=== PATIENT | male | born 1985 | race Caucasian/White ===

== ENCOUNTER 2021-06-18 11:08 | Emergency (ER) | payer OTHER, SELFPAY ==
[2021-06-18 11:25] VITALS: BP 126/98; PULSE 93; RESP 18; TEMP 36.8; O2SAT 99
--- NOTE | 2021-06-18 11:39 | ED.DENTAL ---
HPI - Dental/Oral General Chief complaint: Dental/Oral Stated complaint: toothache Time Seen by Provider: 06/18/21 11:35 Source: patient Mode of arrival: ambulatory Limitations: no limitations History of Present Illness HPI Narrative: Mr. Pickens is a 35-year-old male patient presenting to the clinic today with complaints of right lower dental pain x2 to 3 days. He reports that when he woke up this morning his jaw was swollen and painful. He had taken some ibuprofen and this has improved. When asked he points back to his right lower back molar as the source of pain. Location: Tooth # (32) Related Data Allergies Allergy/AdvReac Type Severity Reaction Status Date / Time No Known Allergies Allergy Verified 06/18/21 11:37 Review of Systems Review of Systems: Pertinent positives per HPI. Patient denies any fever, chills, rash, headache, visual changes, dizziness, cough, runny nose, sore throat, shortness of breath, chest pain, palpitations, nausea, vomiting, diarrhea, constipation, abdominal pain, or any urinary issues. PMFSH Comments At the time of my signature, I reviewed and agree with the nursing past medical, surgical, social, and family history. There is no relevant family history pertinent to the patient complaint. Exam Narrative: General: Well-developed, well nourished, in no apparent distress Head: Normocephalic, atraumatic Eyes: Pupils equally round and reactive to light bilaterally, EOM intact, sclera and conjunctive clear, no discharge, lids normal Ears: TMs intact and clear, ear canals clear, no drainage, grossly hearing normal. Nose: Nares patent, no discharge, no inflammation, no sinus tenderness. Mouth: Oropharynx without lesions or masses, poor dentition, MMM. Tooth #32 painful to palpation with swelling around the gingiva. No obvious purulent discharge. Neck: Supple, trachea midline, no enlargement of anterior or posterior cervical nodes, no thyroid masses or goiter palpable. Cardio: Regular rate and rhythm, s1 and s2 normal, no murmur appreciated. Resp: Clear to auscultation bilaterally anteriorly and posteriorly, no rhonchi, rales, wheezing or rubs Course Course Emergency Course: Portions of this record may have been created with voice recognition software. Level of Care: Express Care Visit Vital Signs Vital signs: Vital Signs Temperature 36.8 C 06/18/21 11:25 Pulse Rate 93 06/18/21 11:25 Respiratory Rate 18 06/18/21 11:25 Blood Pressure 126/98 H 06/18/21 11:25 Pulse Oximetry 99 06/18/21 11:25 Temperature 36.8 C 06/18/21 11:25 Pulse Rate 93 06/18/21 11:25 Respiratory Rate 18 06/18/21 11:25 Blood Pressure 126/98 H 06/18/21 11:25 Pulse Oximetry 99 06/18/21 11:25 Vital signs reviewed MDM - Dental/Oral MDM Narrative Medical decision making narrative: At the time of evaluation the swelling has gone down in the patient's jaw. I will send him a prescription for amoxicillin for a dental infection. I do not feel that this is currently abscessed however I will give him instructions regarding abscess. He should follow-up with the dentist as soon as possible and follow-up with his PCP regarding his high blood pressure issues to have this rechecked. Differential Diagnosis Differential diagnosis: Likely toothache, fracture of tooth and other (Dental abscess) Discharge Plan Discharge Clinical Impression: Toothache Patient Disposition: Home, Self-Care Condition: Stable Instructions: Antibiotic Form, Dental Abscess (ED) Additional Instructions: Take amoxicillin as prescribed. Tylenol /Motrin as needed for pain or fever May apply ice or heat to affected area to help alleviate symptoms Swish salt water Follow-up with your dentist as soon as possible Discussed patient's elevated blood pressure at the time of visit and recommend follow-up with primary care physician to have this reevaluated within the next week if symptoms persist. Prescriptions: New
[2021-06-18 11:45] VITALS: BP 129/98
== END 2021-06-18 11:45 | disposition home or self-care (01) ==
PROVIDERS: Emergency Provider Nurse Practitioner Family
DX: K08.89 Other specified disorders of teeth and supporting structures (principal)
CPT/HCPCS: 99213; G0463

== ENCOUNTER 2022-01-28 10:40 | Emergency (ER) | payer OTHER, SELFPAY ==
[2022-01-28 11:07] VITALS: BP 133/93; PULSE 79; RESP 18; TEMP 36.9; O2SAT 100
--- NOTE | 2022-01-28 11:25 | ED.EAR ---
HPI - Ear Problem General Chief complaint: Ear Stated complaint: rt ear swollen Time Seen by Provider: 01/28/22 11:15 Source: patient Mode of arrival: ambulatory Limitations: no limitations History of Present Illness HPI Narrative: Mr. Mishra is a 36-year-old male patient presenting to the clinic today with complaints of a bump that is sore to the back of his right earlobe. He reports that this has been ongoing for some time now however the last few days it has gotten worse. He reports he was trying to squeeze it and pop it and felt a ripping sensation Related Data Allergies Allergy/AdvReac Type Severity Reaction Status Date / Time No Known Allergies Allergy Verified 01/28/22 11:27 Review of Systems Review of Systems: Pertinent positives per HPI. Patient denies any fever, chills, rash, headache, visual changes, dizziness, cough, runny nose, sore throat, shortness of breath, chest pain, palpitations, nausea, vomiting, diarrhea, constipation, abdominal pain, or any urinary issues. PMFSH Comments At the time of my signature, I reviewed and agree with the nursing past medical, surgical, social, and family history. There is no relevant family history pertinent to the patient complaint. Exam Narrative: General: Well-developed, well nourished, in no apparent distress Head: Normocephalic, atraumatic Eyes: Pupils equally round and reactive to light bilaterally, EOM intact, sclera and conjunctive clear, no discharge, lids normal Ears: TMs intact and clear, ear canals clear, no drainage, grossly hearing normal. Fluctuant abscess to the right earlobe approximately the size of a grape Nose: Nares patent, no discharge, no inflammation, no sinus tenderness. Mouth: Oropharynx without lesions or masses, good dentition, MMM. Neck: Supple, trachea midline, no enlargement of anterior or posterior cervical nodes, no thyroid masses or goiter palpable. Cardio: Regular rate and rhythm, s1 and s2 normal, no murmur appreciated. Resp: Clear to auscultation bilaterally anteriorly and posteriorly, no rhonchi, rales, wheezing or rubs Course Course Emergency Course: Portions of this record may have been created with voice recognition software. Level of Care: Express Care Visit Vital Signs Vital signs: Vital Signs Temperature 36.9 C 01/28/22 11:07 Pulse Rate 79 01/28/22 11:07 Respiratory Rate 18 10/24/22 11:07 Blood Pressure 133/93 H 01/28/22 11:07 Pulse Oximetry 100 01/28/22 11:07 Oxygen Delivery Room Air 01/28/22 11:07 Temperature 36.9 C 01/28/22 11:07 Pulse Rate 79 01/28/22 11:07 Respiratory Rate 18 01/28/22 11:07 Blood Pressure 133/93 H 01/28/22 11:07 Pulse Oximetry 100 01/28/22 11:07 Oxygen Delivery Room Air 01/28/22 11:07 Vital signs reviewed Procedures Other Procedure Procedure 1: Other Procedure: Verbal consent obtained for the incision and drainage of the right ear abscess. Posterior lobe was cleansed with alcohol and an 18 gauge needle was then used to open a small area in the right earlobe. Yellowish white discharge was expressed from the earlobe. Culture was obtained. Patient tolerated procedure well. Triple antibiotic ointment was placed over the wound. Medical Decision Making MDM Narrative Medical decision making narrative: At the time of visit patient is resting comfortably on the exam table. An 18 gauge needle was used to open the abscess and drain it. Yellowish white discharge was expressed and culture was obtained. Patient reports that the pain has greatly improved after incision and drainage. Will place patient on a prescription for doxycycline and have him follow-up with his PCP as needed. Supportive measures were discussed with the patient he voiced understanding of discharge instruction Differential Diagnosis Differential Diagnosis: Earlobe cyst, earlobe abscess Vital Signs Vital Signs: Vital Signs Temperature 36.9 C 01/28/22 11:07 Pulse Rate 7
== END 2022-01-28 11:41 | disposition home or self-care (01) ==
PROVIDERS: Emergency Provider Nurse Practitioner Family
DX: H60.01 Abscess of right external ear (principal)
CPT/HCPCS: 87070; 87075; 87205; 99213; G0463

== ENCOUNTER 2022-12-21 10:20 | Emergency (ER) | payer OTHER, SELFPAY ==
--- NOTE | 2022-12-21 10:26 | ED.SKABFB ---
HPI - Skin/Abscess/Foreign Bdy General Chief complaint: Ear Stated complaint: cyst in rt ear Time Seen by Provider: 12/21/22 10:23 Source: patient and old records reviewed Mode of arrival: ambulatory Limitations: no limitations History of Present Illness HPI narrative: Matt is a 37-year-old male patient presenting to the clinic today with complaints of a cyst to the back of his right earlobe. He reports that he has had is brewing for approximately 2-3 weeks however has become more painful and nose pool over the last 2-3 days. He denies any fever or chills. He denies any drainage. This occurred approximately 1 year ago and I saw the patient draining did at that time and the bacteria that grew was a propionibacterium species. Related Data Allergies Allergy/AdvReac Type Severity Reaction Status Date / Time No Known Allergies Allergy Verified 12/21/22 10:23 Review of Systems Review of Systems: Pertinent positives per HPI. Patient denies any fever, chills, rash, headache, visual changes, dizziness, cough, runny nose, sore throat, shortness of breath, chest pain, palpitations, nausea, vomiting, diarrhea, constipation, abdominal pain, or any urinary issues. PMFSH Past Medical History Medical History Encounter for screening for malignant neoplasm of prostate Family history of anemia Headache Hypertension Screening cholesterol level Family History Family History Mother Hypertension Cerebrovascular accident Social History Social History Smoking status: Never smoker Tobacco type: e-cigarettes/vaping Substance use: current Comments At the time of my signature, I reviewed and agree with the nursing past medical, surgical, social, and family history. There is no relevant family history pertinent to the patient complaint. Exam Narrative: General: Well-developed, well nourished, in no apparent distress Head: Normocephalic, atraumatic. Cardio: Regular rate and rhythm, s1 and s2 normal, no murmur appreciated. Resp: Clear to auscultation bilaterally, no rhonchi, rales, wheezing or rubs. Integumentary: [facility], warm, and dry, small abscess with redness and mild erythema, mild fluctuance,measuring 1cm x 1cm to the posterior external ear lobe- right ear Course Course Emergency Course: Portions of this record may have been created with voice recognition software. Level of Care: Express Care Visit Vital Signs Vital signs: Vital signs reviewed Procedures Abscess I/D ear: Date of Incision: 12/21/22 Side (if applicable): right Sedation/analgesia: none Local Anesthetic: none Amount of anesthesia used (mL): 0 Technique: needle aspiration Amount of fluid expressed (mL): 0.5 Irrigation: No Packing used?: none I&D Results: Pus and Blood Complications: other (none) Abcess I&D Additional Comments: Verbal consent was obtained for needle aspiration of the right ear abscess. Area was cleansed with alcohol swab and an 18 gauge was then used to brandon the abscess and withdrawal 0.5 mL of white purulent discharge. Patient tolerated procedure well. Bleeding was controlled using a 4 x 4 sterile gauze/pressure. MDM - Skin/Abscess/Foreign Bdy MDM Narrative Medical decision making narrative: At the time of visit patient is resting on the exam table. Patient has a probable abscess versus cyst to posterior right ear lower. This area measured 1 x 1 cm with mild erythema and redness and mild fluctuance. Offer to drain the abscess using an 18 gauge needle and 5 mL syringe and patient verbalizes consent. Area was cleansed with alcohol swab and an 18 gauge was then used to brandon the abscess and withdrawal 0.5 mL of white purulent discharge. Patient tolerated procedure well. Blee
[2022-12-21 10:29] VITALS: BP 117/73; PULSE 77; RESP 18; TEMP 37.1; O2SAT 99
== END 2022-12-21 10:40 | disposition home or self-care (01) ==
PROVIDERS: Emergency Provider Nurse Practitioner Family; PCP Family Medicine
DX: H60.01 Abscess of right external ear (principal); I10 Essential (primary) hypertension
CPT/HCPCS: 10160; 99213; G0463

== ENCOUNTER 2025-01-28 12:17 | Emergency (ER) | payer OTHER, SELFPAY ==
[2025-01-28 12:19] VITALS: BP 126/87; PULSE 87; RESP 16; TEMP 36.6; O2SAT 100
--- OUTSIDE RECORDS SUMMARY | 2025-01-28 12:19 | XMS_ITS | Clinical Summary ---
Author Organization [facility] Address [address] [place] [id number] Care Team Providers Care Child Specialist Name Role Phone Unavailable Primary Care Provider Unavailabl e Social History Tobacco Use Types Packs/Day Years Used Date Smoking Tobacco: Never Assessed Sex and Gender Information Value Date Recorded Sex Assigned at Not on file Legal Sex Male 5:50 PM CDT Gender Identity Not on file Sexual Orientation Not on file Plan of Treatment Health Maintenance Due Date Last Done Comments Annual Physical 10/14/1986 Hepatitis C 10/14/2001 DTaP, Tdap and Td Vaccines ( 1 - Tdap) 10/14/2002 Hepatitis B Vaccines (1 of 3 - 19+ 3-dose series) 10/14/2002 HPV Vaccines (1 - 3-dose SCD M series) 10/14/2010 COVID-19 Vaccine ( - 2024-2 6 season) 2024 Influenza Adult (#1) 2025 Hepatitis A Vaccines Aged Out No long er eligible based on patient's age to complete this topic Meningococcal B Vaccine Aged Out No l onger eligible based on patient's age to complete this topic Meningococcal Vaccine Aged Out No rika mary eligible based on patient's age to complete this topic Pneumococcal Vaccine: Pediat rics (0 to 5 Years) and At-Risk Patients (6 to 49 Years) Aged Out No longer eligible b ased on patient's age to complete this topic RSV Immunizations Under 20 Months Aged Out No longer eligible based on patient's age to complete this topic
[2025-01-28 13:22] LABS: Hematocrit 42.5 % (42.0-52.0); Hemoglobin 14.0 g/dL (14.0-18.0); Immature Granulocyte Percent A 0.4 % (0-0.5); Lymphocytes Absolute Auto 1.35 K/mm3 (0.9-3.2); Mean Corpuscular HGB Conc 32.9 g/dl (32-36); Mean Corpuscular Hemoglobin 29.9 pg (26-34); Mean Corpuscular Volume 90.8 fl (80-100); Nucleated Red Blood Cells Absolute Auto 0.000 K/mm3 (0.0-0.012); Nucleated Red Blood Cells Perc 0.0 % (0.0-0.2); Platelet Count Result 268 k/mm3 (150-375); Red Blood Count 4.68 M/mm3 (4.6-6.20); White Blood Count 5.6 K/mm3 (4.5-10.0)
[2025-01-28 13:35] LABS: Alanine Aminotransferase 26 U/L (6-50); Albumin Level 4.5 g/dL (3.5-5.1); Alkaline Phosphatase 55 U/L (38-126); Anion Gap 9 mmol/L (4-12); Aspartate Amino Transferase 35 U/L (17-59); Bilirubin,Total 0.6 mg/dL (0.2-1.3); Blood Urea Nitrogen 15 mg/dL (9-20); Calcium 9.1 mg/dL (8.4-10.2); Carbon Dioxide 26 mmol/L (22-30); Chloride 102 mmol/L (98-107); Estimated CRCL calculation 80 ml/min; Estimated Glomerular Filt Rate > 60; Glucose 74 mg/dL (65-110); Lipase 158 U/L (23-300); Potassium 3.8 mmol/L (3.4-5.0); Sodium 137 mmol/L (137-145); Total Protein 7.1 g/dL (6.3-8.2)
--- OUTSIDE RECORDS SUMMARY | 2025-01-28 13:52 | XMS_ITS | Clinical Summary ---
Author Organization [facility] Address [address] [place] [id number] Care Team Providers Care Line Supply Name Role Phone Unavailable Primary Care Provider [...]
[2025-01-28 13:55] VITALS: BP 105/78; PULSE 57; RESP 16; O2SAT 97
[2025-01-28] MEDS: KETOROLAC 15 MG/ML VIAL (*BKC) IV PUSH (14:13)
--- NOTE | 2025-01-28 14:14 | ED_ITS ---
HPI - Abdominal Pain General Chief Complaint: Abdominal Pain Stated Complaint: abd pain Time Seen by Provider: 01/28/25 13:27 History of Present Illness HPI narrative: Patient is a 39-year-old male who presents ER with pain in his upper abdomen. He had been helping his daughter do cheerleading lifts where she would stand on his knee in the you get her up on top of his shoulders. He felt some discomfort in his midline upper abdomen. He was told that he may have injured his abdominal rectus musculature. He has noticed bulging on occasion. No difficulty eating or drinking or passing gas. Refer fevers or chills. Also has some mild discomfort in left lower quadrant that started recently but no bulging. No urinary frequency or urgency or dysuria. Has history kidney stones he reports he may be passing 1 but he has not had having any stenting or lithotripsy in the past. Related Data Allergies Allergy/AdvReac Type Severity Reaction Status Date / Time No Known Allergies Allergy Verified 01/28/25 12:22 Review of Systems 2 Review of Systems: All systems reviewed & are unremarkable except as noted in HPI and below Constitutional: Constitutional: Reports no additional constitutional complaints Cardiovascular: Cardiovascular: Reports no additional cardiovascular complaints Respiratory: Respiratory: Reports no additional respiratory complaints Gastrointestinal: Gastrointestinal: Reports no additional gastrointestinal complaints Musculoskeletal: Musculoskeletal: Reports no additional musculoskeletal complaints PMFSH Past Medical History Medical History (Updated 01/28/25 @ 14:48 by Spencer Campbell MD) Hypertension Headache Surgical History Surgical History No history of previous surgery Family History Family History Mother Hypertension Cerebrovascular accident Social History Social History Smoking status: Never smoker Tobacco type: e-cigarettes/vaping Substance use: current Do You Feel Safe in your Home?: Yes Lack of Transportation: No Lack of Food: Never True Current Housing: I Have Housing Concerned About Future Housing: No Difficulty Paying Gas/Electric Bills: No Difficulty Paying for Meds: No Currently Unemployed: No Education: High School Diploma/GED Living arrangements: with family Exam 2 Narrative: GENERAL: Well-appearing, well-nourished, and in no acute distress. HEAD: Normocephalic, atraumatic. ENT: Mucous membranes moist. CHEST: Clear to auscultation. No respiratory distress. HEART: Regular rate and rhythm. Normal peripheral pulses. ABDOMEN: Soft, nontender, nondistended. Rectus diastasis of the upper abdomen midline. A small umbilical hernia fingertip. EXTREMITIES: Normal range of motion. No edema. SKIN: Warm, dry, no rash. NEURO: Alert and oriented x3. PSYCH: Normal mood and affect. Course Course Emergency Course: Benign abdominal exam with exception of the abdominal wall defect. Additionally lab work unremarkable. Appropriate for discharge home. Will give surgery referral for evaluation. Vital Signs Vital signs: Vital Signs Temperature 98 F 01/28/25 12:19 Pulse Rate 87 01/28/25 12:19 Respiratory Rate 16 01/28/25 12:19 Blood Pressure 126/87 01/28/25 12:19 Pulse Oximetry 100 01/28/25 12:19 Temperature 98 F 01/28/25 12:19 Pulse Rate 57 L 01/28/25 13:55 Respiratory Rate 16 01/28/25 13:55 Blood Pressure 105/78 01/28/25 13:55 Pulse Oximetry 97 01/28/25 13:55 MDM - Abdominal Pain Differential Diagnosis Differential diagnosis: Likely abdominal pain, acute appendicitis, diverticulitis and other (henira) Lab Data Attestation: I reviewed the patient's lab results. 01/28/25 13:17 01/28/25 13:17 Labs: Lab Results 01/28/25 01/28/25 Range/Units 13:17 14:08 WBC 5.6 (4.5-10.0) K/mm3 RBC 4.68 (4.6-6.20) M/mm3 Hgb 14.0 (14.0-18.0) g/dL Hct 42.5 (42.0-52.0) % MCV 90.8 (80-100) fl MCH 29.9 (26-34) pg MCHC 32.9 (32-36) g/dl RDW 12.4 (11.5-14.5) % Plt Count 268 (150-375) k/mm3 MPV 9.9 (7.4-10.4) fl Immature Gran % (Auto) 0.4 (0-0.5) % Neut % (Auto) 62.9 (45.5-73.1) % Lymph % (Auto) 24.2 (18.3-44.2) % [place] % (Auto) 9.8 H (2.6-8.5) % Eos % (Auto) 2.0 (0-4.4) % Baso % (Auto) 0.7 (0.2-1.2) % Lymph # (Auto) 1.35 (0.9-3.2) K/mm3 [place] # (Auto) 0.6 (0.1-0.6) K/mm3 Eos # (Auto) 0.1 (0-0.3) K/mm3 Baso # (Auto) 0.0 (0.0-0.1) K/mm3 Abs Immat Gran (auto) 0.02 (0.00-0.031) K/mm3 Absolute Neuts (auto) 3.5 (1.3-6.7) K/mm3 Absolute Nucleated RBC 0.000 (0.0-0.012) K/mm3 Nucleated RBC % 0.0 (0.0-0.2) % Sodium 137 (137-145) mmol/L Potassium 3.8 (3.4-5.0) mmol/L Chloride 102 (98-107) mmol/L Carbon Dioxide 26 (22-30) mmol/L Anion Gap 9 (4-12) mmol/L BUN 15 (9-20) mg/dL Creatinine 0.77 (0.7-1.3) mg/dL Estim Creat Clear Calc 80 ml/min Estimated GFR > 60 (59 - ) Glucose 74 (65-110) mg/dL Calcium 9.1 (8.4-10.2) mg/dL Total Bilirubin 0.6 (0.2-1.3) mg/dL AST 35 (17-59) U/L ALT 26 (6-50) U/L Alkaline Phosphatase 55 (38-126) U/L Total Protein 7.1 (6.3-8.2) g/dL Albumin 4.5 (3.5-5.1) g/dL Lipase 158 (23-300) U/L Urine Color Yellow (Yellow) Urine Appearance Clear (Clear) Urine pH 5.5 (5.0-9.0) Ur Specific [place] Switch 1.025 (1.001-1.035) Urine Protein Negative (Negative) mg/dL Urine Glucose (UA) Negative (Negative) mg/dL Urine Ketones Trace H (Negative) mg/dL Ur Blood (Man) Negative (Negative) Urine Nitrate Negative (Negative) Urine Bilirubin Negative (Negative) Urine Urobilinogen 0.2 (<2.0) mg/dL Leukocyte Esterase Rfl Negative (Negative) MIRIAM/UL Discharge Plan Discharge Clinical Impression: Rectus diastasis Patient Disposition: Home Condition: Stable Additional Instructions: Follow-up with general surgery for further evaluation of your abdominal wall. Perform core strengthening exercises such as planks. Return the ER if you have increased pain, you cannot pass gas/stool, or you have additional concerns. Patient Language: Indonesian Prescriptions: No Action lisinopril 10 mg tablet See Rx Instructions .ROUTE .COMPLEX Qty: 90 2RF Dose Instruction: TAKE 1 TABLET BY MOUTH DAILY Rx Instructions: TAKE 1 TABLET BY MOUTH DAILY trazodone 50 mg tablet 50 mg PO QHS PRN (Reason: insomnia) Qty: 30 0RF Follow-up/Referrals: Noa Loya APRN [Primary Care Provider, Family Practice] Ron Esposito DO [Physician, General Surgery] - 1 Week
[2025-01-28 14:19] LABS: Add Urine Microscopic? NO; Appearance Urine Clear (Clear); Glucose Urine UA Negative (Negative); Leukocyte Esterase Ur Negative LEU/UL (Negative); Nitrate Urine Negative (Negative); Specific Grav Ur 1.025 (1.001-1.035)
== END 2025-01-28 15:01 | disposition home or self-care (01) ==
PROVIDERS: Emergency Medicine; Emergency Provider Emergency Medicine; PCP Nurse Practitioner Family
DX: S39.011A Strain of muscle, fascia and tendon of abdomen, initial encounter (principal); I10 Essential (primary) hypertension; Z87.442 Personal history of urinary calculi; X50.0XXA Overexertion from strenuous movement or load, initial encounter
CPT/HCPCS: 36415; 80053; 81003; 83690; 85025; 96374; 99284; J1885